=== PATIENT | female | born 1980 | race Caucasian/White ===

== ENCOUNTER 2016-11-26 10:02 | Emergency (ER) | payer BC, OTHER ==
--- NOTE | 2016-11-26 14:18 | DIAGNOSTIC IMAGING REPORT ---
PROCEDURE: US ABDOMEN ULTRASOUND-LIMITED INDICATION: RUQ PAIN TECHNIQUE: Sanchez scale and color Doppler sonographic images of the abdomen were obtained without comparison. COMPARISON: Abdominal CT 07/16/2014 FINDINGS: The liver is normal in size, contour, and echotexture. No mass or intrahepatic biliary dilatation. Two angiomas are noted, one measuring 12 mm and the other measuring 10 mm. The gallbladder is normal without stones or sludge. The wall is normal thickness measuring 2 mm No pericholecystic fluid or Lo sign. The extrahepatic common duct is normal measuring 2.5 mm The visualized pancreas is normal without ductal dilatation or peripancreatic fluid collection. The abdominal aorta is normal in its course and caliber. The retrohepatic inferior vena cava is patent. There is appropriate hepatopetal flow in the portal vein. The right kidney measures 9.2 x 5.2 x 4 cm in length. There is no perihepatic or perisplenic ascites. IMPRESSION: 1. Normal abdominal ultrasound.
--- NOTE | 2016-11-26 15:33 | ED NURSING NOTES ---
Clinical Report - Nurses [facility] [place] [address] 11/26/2016 8:55 Patient: SAMANTHA FRITZ TRIAGE 09:55 11/26/16. --09:55 Remedios Aburto R.N. Triage time 10:13. Acuity: LEVEL 3. Chief Complaint: ABDOMINAL PAIN and NAUSEA. Alert. No acute distress. --10:24 Neyda Matt R.N. 10:13 11/26/16. BP: 100/57. HR: 91. RR: 18. O2 saturation: 97%. Temp: 98.4 F. Pain level now 01/21. --10:24 Neyda Matt R.N. MATT COMA SCORE: Matt Coma Scale: 15- eyes open spontaneously (4); best verbal response- oriented x 4 (5); best motor response- obeys commands (6). --10:29 Neyda Matt R.N. Weight: 68.4 kg stated. Height/Length: 64 inches Per Patient. BMI: 25.9. --10:27 Neyda Matt R.N. Medications Vitamins Oral. --10:16 Neyda Matt R.N. Medication/allergy information source: the patient. --10:24 Neyda Matt R.N. Allergies None. --10:16 Neyda Matt R.N. History ( Pt rapid triaged in [facility] on arrival, just after being registered, pt states has RUQ abdominal pain and is 29 weeks , referred to OB to have baby checked, even though pt protested, stating that her OBMD told her it was not a labor issue.). --09:53 Remedios Aburto R.N. ( OB RN, [facility], gave report now that Dr. Farfan is seeing pt, and will send her back to ED for evaluation of abdominal pain, cleared for OB complications at this time.). --09:55 Remedios Aburto R.N. Arrived by private vehicle. Historian: patient. Unaccompanied (self). Primary physician (dorothy vigil). ( RUQ abd pain x 1 week, intermittent, feels like nerve pain, but extends sub dermally.). No nausea, vomiting, diarrhea or fever. Last oral intake by patient was (0800 water 0730 breakfast). Treatment FIRE SERVICES PLUMBER: None. PAST MEDICAL HX: Immunizations: up-to-date. Last normal menstrual period- May 02. Currently . In 3rd trimester. SURGERY HX: Laparoscopy (3x endometriosis, cone bx). ( right breast lumpectomy, left arm ortho). SOCIAL HX: Former smoker. No alcohol use. No recent travel. No infectious disease exposure. No known contact with a sick individual. ABUSE ASSESSMENT: No report of abuse. SELF HARM ASSESSMENT: A self harm assessment was performed. The patient answered "no" to the question "Are you here because you tried to hurt yourself?". FALL RISK ASSESSMENT: Fall risk assessment completed. No fall risk identified. NUTRITIONAL RISK ASSESSMENT: The nutritional risk assessment revealed no deficiencies. FUNCTIONAL ASSESSMENT: Functional assessment: no impairments noted. LEARNING NEEDS ASSESSMENT: The learning needs assessment revealed no barriers. SKIN INTEGRITY ASSESSMENT: Skin integrity risk assessment completed. No skin integrity risk identified. --10:24 Neyda Matt R.N. PROBLEMS: Trigeminal Neuralgia. --10:17 Neyda Matt R.N. Interventions ID band on patient. To treatment room. --10:24 Neyda Matt R.N. PHYSICAL ASSESSMENT HEENT: Mucous membranes are pink. GI / : Abdomen soft. Abdominal tenderness in the right upper quadrant. SKIN: Skin is warm and dry. --10:25 Neyda Matt R.N. NURSING PROGRESS NOTES Monitoring of patient in place. Patient gowned. Head of bed elevated. Reassurance given. Two patient identifiers checked. Call light placed in reach. Side rails up x 1. Bed placed in lowest position. Brakes of bed on. Patient ready for evaluation- chart flagged. ED physician notified. --10:26 Neyda Matt R.N. 10:43 11/26/2016 Site #1 started via IV in the left with an 20g angiocath, with aseptic technique and good blood return; one attempt. Blood drawn: rainbow set. Labeled in the presence of the patient and sent to the lab. Saline lock flushed with 5 mL saline. --10:54 Neyda Matt R.N. 10:20. Care transferred and report received. --11:03 Neyda Matt R.N. 10:59 11/26/2016 Acetaminophen (APAP) PO 1000 mg given. Allergies verified and confirmed 5 rights. --11:25 Neyda Matt R.N. 12:38 11/26/2016 Demerol (Meperidine HCl) IVP 12.5 mg given. via site #1. Allergies verified and confirmed 5 rights. IV patency established. IV site checked: no pain, redness, or swelling. IV flushed thoroughly pre- and post-medication administration. IVP given by RN. --12:38 Neyda Matt R.N. 14:40 11/26/2016 Demerol (Meperidine HCl) IVP 12.5 mg given. via site #1. Allergies verified and confirmed 5 rights. IV patency established. IV site checked: no pain, redness, or swelling. IV flushed thoroughly pre- and post-medication administration. IVP given by RN. --14:40 Neyda Matt R.N. The patient reports abdominal pain located in the RUQ is still present and currently described as sharp and burning. --14:43 Neyda Matt R.N. DISPOSITION / DISCHARGE 15:50 11/26/2016 Site #1 removed upon discharge. Catheter intact. Pressure dressing applied. --15:55 Neyda Matt R.N. Departure time: 1554. Condition at departure: improved. ( decreased pain level). No learning barriers present. Discharge instructions provided and reviewed with the patient. Reviewed medication(s) dosing and course information. Prescription(s) given to the patient. Medication(s) for home use given to the patient per protocol. Work note given. Patient verbalized understanding. Written instructions provided in Luxembourgish. The patient was discharged home and accompanied by human services professional. She left the Emergency Department ambulatory and via private vehicle. Keg Raiser driving. FALL RISK ASSESSMENT: Fall risk assessment completed. No fall risk identified. --15:57 Neyda Matt R.N. 15:54 11/26/16. BP: 111/67. HR: 77. RR: 18. O2 saturation: 100%. Temp: 98.5 F. Pain level now 09/21. --15:57 Neyda Matt R.N. Locked/Released at 11/26/2016 19:02 by Neyda Matt R.N.
--- NOTE | 2016-11-26 15:33 | ED ORDER SUMMARY ---
..... Patient: SAMANTHA FRITZ OrderSheet [facility] VisitID: [id number] [place] [address] 36y, F Registration Date/Time: 11/26/2016 ORDER SHEET Weight: 68.4 kg (stated) Allergies: None GENERAL ORDERS: CBC w Diff Urgent (10:11/26/2016 Stevie Multani) (Ack 10:19 TBergley) (10:54 LAbe R.N.) CMP Urgent (10:11/26/2016 Stevie Multani) (Ack 10:19 TBergley) (10:54 LAbe R.N.) UA-Culture if indicated Urgent (10:11/26/2016 Stevie Multani) (Ack 10:19 TBergley) (10:54 LAbe R.N.) Amylase Urgent (10:11/26/2016 Stevie Multani) (Ack 10:19 TBergley) (10:54 LAbe R.N.) Lipase Urgent (10:11/26/2016 Stevie Multani) (Ack 10:19 TBergley) (10:54 LAbe R.N.) US Abdomen Limited (Yes) Urgent (12:11/26/2016 Stevie Multani) (Ack 12:30 TBergley) (14:17 Eduin) MEDICATION ORDERS: Acetaminophen PO 1,000 mg (NOW) (10:49 11/26/2016 Stevie Multani) (Ack 10:54 LAbe R.N.) (11:25 LAbe R.N.) IV FLUIDS: IV Saline Lock (10:11/26/2016 Stevie Multani) (10:54 LAbe R.N.) Demerol IV 12.5 mg (HIGH ALERT MEDICATION, NOW) (12:29 11/26/2016 Steive Multani) (Ack 12:33 LAbe R.N.) (12:38 LAbe R.N.) Demerol IV 12.5 mg (HIGH ALERT MEDICATION, NOW) (14:31 11/26/2016 Stevie Multani) (Ack 14:39 LAbe R.N.) (14:40 Sergio Henriquez) ORDER SHEET NOTES: [Electronically signed by Neyda Matt R.N. (19:02 11/26/2016)] [Electronically signed by Evan Robison Dr. (08:42 11/27/2016)] [Electronically locked/signed by Neyda Matt R.N. (19:02 11/26/2016)]
--- NOTE | 2016-11-26 15:33 | ED CLINICAL REPORT ---
Clinical Report - Physicians/Mid Levels [facility] [address] [place] [place] [address] 11/26/2016 8:55 Patient: SAMANTHA FRITZ Time Seen: 10:17 Pt just presenting to ED, was evaluated by Ob initially; initial patient contact. HISTORY OF PRESENT ILLNESS Chief Complaint: ABDOMINAL PAIN. It is described as "pain" and burning. No radiation. It is described as located in the right upper quadrant. At its maximum, severity described as moderate. When seen in the E.D., severity described as moderate. Modifying factors- worsened by cough and deep breaths. Not relieved by anything. This started about 1 week ago and is still present. It was gradual in onset. No nausea, loss of appetite, vomiting or diarrhea. Similar symptoms previously: None. Recent medical care: The patient was seen recently at this facility (Cleared by Ob). REVIEW OF SYSTEMS No constipation, difficulty with urination, pain with urination, abnormal bleeding or fever. No chills. All systems otherwise negative, except as recorded above. PAST HISTORY Trigeminal Neuralgia. Medications: Vitamins Oral. Allergies: None. SOCIAL HISTORY Former smoker. No alcohol use or drug use. ADDITIONAL NOTES The nursing notes have been reviewed. PHYSICAL EXAM Vital Signs: 11/26/2016 10:13 BP: 100/57. HR: 91. RR: 18. O2 saturation: 97%. Temp: 98.4 F. Have been reviewed. Hypotensive. Heart rate normal. Respiratory rate normal. Temperature normal. Oxygen saturation normal. Appearance: Alert. Oriented X3. Appears to be in pain. ENT: Pharynx normal. CVS: Normal heart rate and rhythm. Heart sounds normal. Respiratory: No respiratory distress. Breath sounds normal. Abdomen: Soft. Moderate tenderness in the right upper quadrant with guarding present (Superficial tenderness.). No rebound tenderness or Lo's sign present. Bowel sounds normal. No organomegaly. No mass. Back: Normal inspection. No tenderness. No rash. Painless ROM. Skin: Normal skin color. No rash. Neuro: Oriented X 3. LABS, X-RAYS, AND EKG Laboratory Tests: UA-Culture if indicated: (ZAINA: 11/26/2016 10:48) ( [facility] 11/26/2016 11:10) Final results Test Result Flag Units (Reference) URINE COLOR YELLOW URINE APPEARANCE CLEAR URINE GLUCOSE NEGATIVE (NEGATIVE) URINE BILIRUBIN NEGATIVE (NEGATIVE) URINE KETONE NEGATIVE (NEGATIVE) URINE SPECIFIC GRAVITY 1.010 (1.010-1.030) URINE PH 7.0 (5.0-8.0) URINE PROTEIN NEGATIVE (NEGATIVE) URINE UROBILINOGEN 0.2 EU/dL (0.2-1.0) URINE NITRITE NEGATIVE (NEGATIVE) URINE BLOOD NEGATIVE (NEGATIVE) URINE LEUK ESTERASE NEGATIVE (NEGATIVE) URINE RBC NONE SEEN rbc/hpf (0-1) URINE WBC RARE wbc/hpf (0-1) URINE EPITHELIAL CELLS 1-3 EPI/hpf (0-5) URINE BACTERIA FEW (1+) (NONE SEEN) URINE COMMENT CULT NOT INDICATED URINE CULTURES ARE SET-UP BASED ON THE FOLLOWING CRITERIA:POSITIVE NITRITEPOSITIVE LEUKOCYTE ESTERASEGREATER THAN 10 WHITE BLOOD CELLSMODERATE (2+) OR GREATER BACTERIA CBC w Diff: (ZAINA: 11/26/2016 10:40) ( [facility] 11/26/2016 11:06) Final results Test Result Flag Units (Reference) WHITE BLOOD COUNT 15.8 H K/uL (4.5-11.5) RED BLOOD COUNT 3.36 L M/uL (4.00-5.20) HEMOGLOBIN 11.2 L gm/dL (12.0-16.0) HEMATOCRIT 33.0 L % (36.0-46.0) MEAN CELL VOLUME 98 fL (80-100) MEAN CORPUSCULAR HGB 33 pg (26-34) MEAN CORPUSCULAR HGB CONC 34 g/dL (31-37) RED CELL DISTRIBUTION WIDTH 13.6 % (11.6-14.8) PLATELET COUNT 159 K/uL (150-400) NEUTROPHIL % 88.9 H % (50-75) LYMPH % 5.2 L % (25-40) MONO % 5.5 % (3-14) EOSINOPHIL % 0.3 % (0-4) BASOPHIL % 0.1 % (0-2) CMP: (ZAINA: 11/26/2016 10:40) ( MsgRcvd 11/26/2016 11:17) Final results Test Result Flag Units (Reference) GLUCOSE 112 H mg/dL (70-110) BUN 9 mg/dL (7-18) CREATININE 0.4 L mg/dL (0.6-1.3) Estimated GFR >60 mL/min Estimated GFR- >60 mL/min Note: Persistent reduction over 3 months in eGFR<60 mL/min/1.73 m2 defines CKD. Patients with eGFR values>=60 mL/min/1.73 m2 may also have CKD if evidence ofpersistent proteinuria. Additional information may be foundat www.kidney.org. SODIUM 141 mmol/L (136-145) POTASSIUM 3.7 mmol/L (3.5-5.1) CHLORIDE 107 mmol/L (98-107) CARBON DIOXIDE 26 mmol/L (21-32) CALCIUM 8.6 mg/dL (8.5-10.1) TOTAL PROTEIN 5.9 L g/dL (6.4-8.2) ALBUMIN 2.7 L g/dL (3.3-5.0) BILIRUBIN, TOTAL 0.2 mg/dL (0.0-1.0) ALKALINE PHOSPHATASE 66 U/L (46-116) AST (SGOT) 20 U/L (15-37) ALT (SGPT) 35 U/L (12-78) LIPASE 103 U/L (73-393) AMYLASE 43 U/L (25-115) . PROGRESS AND PROCEDURES Disposition: Discharged home in good and improved condition. Condition: good. CLINICAL IMPRESSION Abdominal muscle strain INSTRUCTIONS Do not work today. Your Current Medications: CONTINUE TAKING THE FOLLOWING MEDICATIONS: Vitamins Oral. Prescription Medications: Hydrocodone/APAP 5mg / 325mg: take 1 orally every 6 hours as needed for pain. Dispense fifteen (15). No refill. Lidoderm 5% topical patch Apply to affected area for 12 hours May cut to size Disp # 30 No refills Substitution OK. Follow-up: Follow up with your doctor Wednesday as scheduled. Blood pressure screening was not performed during this visit because the patient has an active diagnosis of hypertension. (Electronically signed by Evan Robison Dr. 11/27/2016 8:42)
--- NOTE | 2016-11-26 15:33 | ED ORDER SUMMARY ---
..... Patient: SAMANTHA FRITZ OrderSheet [facility] VisitID: [id number] [place] [address] 36y, F Registration Date/Time: 11/26/2016 ORDER SHEET Weight: 68.4 kg (stated) Allergies: None GENERAL ORDERS: CBC w Diff Urgent (10:11/26/2016 Stevie Multani) (Ack 10:19 TBergley) (10:54 LAbe R.N.) CMP Urgent (10:11/26/2016 Stevie Multani) (Ack 10:19 TBergley) (10:54 LAbe R.N.) UA-Culture if indicated Urgent (10:11/26/2016 Stevie Multani) (Ack 10:19 TBergley) (10:54 LAbe R.N.) Amylase Urgent (10:11/26/2016 Stevie Multani) (Ack 10:19 TBergley) (10:54 LAbe R.N.) Lipase Urgent (10:11/26/2016 Stevie Multani) (Ack 10:19 TBergley) (10:54 LAbe R.N.) US Abdomen Limited (Yes) Urgent (12:11/26/2016 Stevie Multani) (Ack 12:30 TBergley) (14:17 Eduin) MEDICATION ORDERS: Acetaminophen PO 1,000 mg (NOW) (10:49 11/26/2016 Stevie Multani) (Ack 10:54 LAbe R.N.) (11:25 LAbe R.N.) IV FLUIDS: IV Saline Lock (10:11/26/2016 Stevie Multani) (10:54 LAbe R.N.) Demerol IV 12.5 mg (HIGH ALERT MEDICATION, NOW) (12:29 11/26/2016 Stevie Multani) (Ack 12:33 LAbe R.N.) (12:38 LAbe R.N.) Demerol IV 12.5 mg (HIGH ALERT MEDICATION, NOW) (14:31 11/26/2016 Stevie Multani) (Ack 14:39 LAbe R.N.) (14:40 Sergio Henriquez) ORDER SHEET NOTES: [Electronically signed by Neyda Matt R.N. (19:02 11/26/2016)] [Electronically signed by Evan Robison Dr. (08:42 11/27/2016)] [Electronically locked/signed by Neyda Matt R.N. (19:02 11/26/2016)]
--- NOTE | 2016-11-26 15:33 | ED NURSING NOTES ---
Clinical Report - Nurses [facility] [place] [address] 11/26/2016 8:55 Patient: SAMANTHA FRITZ TRIAGE 09:55 11/26/16. --09:55 Remedios Aburto R.N. Triage time 10:13. Acuity: LEVEL 3. Chief Complaint: ABDOMINAL PAIN and NAUSEA. Alert. No acute distress. --10:24 Neyda Matt R.N. 10:13 11/26/16. BP: 100/57. HR: 91. RR: 18. O2 saturation: 97%. Temp: 98.4 F. Pain level now 01/21. --10:24 Neyda Matt R.N. MATT COMA SCORE: Matt Coma Scale: 15- eyes open spontaneously (4); best verbal response- oriented x 4 (5); best motor response- obeys commands (6). --10:29 Neyda Matt R.N. Weight: 68.4 kg stated. Height/Length: 64 inches Per Patient. BMI: 25.9. --10:27 Neyda Matt R.N. Medications Vitamins Oral. --10:16 Neyda Matt R.N. Medication/allergy information source: the patient. --10:24 Neyda Matt R.N. Allergies None. --10:16 Neyda Mtat R.N. History ( Pt rapid triaged in [facility] on arrival, just after being registered, pt states has RUQ abdominal pain and is 29 weeks , referred to OB to have baby checked, even though pt protested, stating that her OBMD told her it was not a labor issue.). --09:53 Remedios Aburto R.N. ( OB RN, [facility], gave report now that Dr. Farfan is seeing pt, and will send her back to ED for evaluation of abdominal pain, cleared for OB complications at this time.). --09:55 Remedios Aburto R.N. Arrived by private vehicle. Historian: patient. Unaccompanied (self). Primary physician (dorothy vigil). ( RUQ abd pain x 1 week, intermittent, feels like nerve pain, but extends sub dermally.). No nausea, vomiting, diarrhea or fever. Last oral intake by patient was (0800 water 0730 breakfast). Treatment POMOLOGIST: None. PAST MEDICAL HX: Immunizations: up-to-date. Last normal menstrual period- May 02. Currently . In 3rd trimester. SURGERY HX: Laparoscopy (3x endometriosis, cone bx). ( right breast lumpectomy, left arm ortho). SOCIAL HX: Former smoker. No alcohol use. No recent travel. No infectious disease exposure. No known contact with a sick individual. ABUSE ASSESSMENT: No report of abuse. SELF HARM ASSESSMENT: A self harm assessment was performed. The patient answered "no" to the question "Are you here because you tried to hurt yourself?". FALL RISK ASSESSMENT: Fall risk assessment completed. No fall risk identified. NUTRITIONAL RISK ASSESSMENT: The nutritional risk assessment revealed no deficiencies. FUNCTIONAL ASSESSMENT: Functional assessment: no impairments noted. LEARNING NEEDS ASSESSMENT: The learning needs assessment revealed no barriers. SKIN INTEGRITY ASSESSMENT: Skin integrity risk assessment completed. No skin integrity risk identified. --10:24 Neyda Matt R.N. PROBLEMS: Trigeminal Neuralgia. --10:17 Neyda Matt R.N. Interventions ID band on patient. To treatment room. --10:24 Neyda Matt R.N. PHYSICAL ASSESSMENT HEENT: Mucous membranes are pink. GI / : Abdomen soft. Abdominal tenderness in the right upper quadrant. SKIN: Skin is warm and dry. --10:25 Neyda Matt R.N. NURSING PROGRESS NOTES Monitoring of patient in place. Patient gowned. Head of bed elevated. Reassurance given. Two patient identifiers checked. Call light placed in reach. Side rails up x 1. Bed placed in lowest position. Brakes of bed on. Patient ready for evaluation- chart flagged. ED physician notified. --10:26 Neyda Matt R.N. 10:43 11/26/2016 Site #1 started via IV in the left with an 20g angiocath, with aseptic technique and good blood return; one attempt. Blood drawn: rainbow set. Labeled in the presence of the patient and sent to the lab. Saline lock flushed with 5 mL saline. --10:54 Neyda Matt R.N. 10:20. Care transferred and report received. --11:03 Neyda Matt R.N. 10:59 11/26/2016 Acetaminophen (APAP) PO 1000 mg given. Allergies verified and confirmed 5 rights. --11:25 Neyda Matt R.N. 12:38 11/26/2016 Demerol (Meperidine HCl) IVP 12.5 mg given. via site #1. Allergies verified and confirmed 5 rights. IV patency established. IV site checked: no pain, redness, or swelling. IV flushed thoroughly pre- and post-medication administration. IVP given by RN. --12:38 Neyda Matt R.N. 14:40 11/26/2016 Demerol (Meperidine HCl) IVP 12.5 mg given. via site #1. Allergies verified and confirmed 5 rights. IV patency established. IV site checked: no pain, redness, or swelling. IV flushed thoroughly pre- and post-medication administration. IVP given by RN. --14:40 Neyda Matt R.N. The patient reports abdominal pain located in the RUQ is still present and currently described as sharp and burning. --14:43 Neyda Matt R.N. DISPOSITION / DISCHARGE 15:50 11/26/2016 Site #1 removed upon discharge. Catheter intact. Pressure dressing applied. --15:55 Neyda Matt R.N. Departure time: 1554. Condition at departure: improved. ( decreased pain level). No learning barriers present. Discharge instructions provided and reviewed with the patient. Reviewed medication(s) dosing and course information. Prescription(s) given to the patient. Medication(s) for home use given to the patient per protocol. Work note given. Patient verbalized understanding. Written instructions provided in Lao. The patient was discharged home and accompanied by senior product analyst. She left the Emergency Department ambulatory and via private vehicle. Solar Engineer driving. FALL RISK ASSESSMENT: Fall risk assessment completed. No fall risk identified. --15:57 Neyda Matt R.N. 15:54 11/26/16. BP: 111/67. HR: 77. RR: 18. O2 saturation: 100%. Temp: 98.5 F. Pain level now 09/21. --15:57 Neyda Matt R.N. Locked/Released at 11/26/2016 19:02 by Neyda Matt R.N.
--- NOTE | 2016-11-27 08:42 | ED DISCHARGE INSTRUCTIONS ---
Patient: SAMANTHA FRITZ General Instructions [facility] VisitID: [id number] [place] [address] 36y, F Registration Date/Time: 11/26/2016 Abdominal muscle strain INSTRUCTIONS Do not work today. Your Current Medications: CONTINUE TAKING THE FOLLOWING MEDICATIONS: Vitamins Oral. Prescription Medications: Hydrocodone/APAP 5mg / 325mg: take 1 orally every 6 hours as needed for pain. Dispense fifteen (15). No refill. Lidoderm 5% topical patch Apply to affected area for 12 hours May cut to size Disp # 30 No refills Substitution OK. Follow-up: Follow up with your doctor Wednesday as scheduled. Blood pressure screening was not performed during this visit because the patient has an active diagnosis of hypertension. ADDITIONAL INFORMATION Muscle Strain, Abdomen A muscle strain is a stretching and tearing of muscle fibers. The abdomen is protected by a thick wall of muscle in the front and sides. These muscles help with twisting and bending forward. Repeated coughing, lifting heavy objects or sudden jerking movements can sometimes cause a muscle strain in the abdomen. This causes pain that is worse when you move. The area may also feel tender or be swollen and bruised. Home Care: Make an ice pack (ice cubes in a plastic bag, wrapped in a towel) and apply over the injured area for 20 minutes every 1-2 hours the first day. You should continue with ice packs 3-4 times a day for the next two days. Continue the use of ice packs for relief of pain and swelling as needed. You may use acetaminophen (Tylenol) or ibuprofen (Motrin, Advil) to control pain, unless another pain medicine was prescribed. [NOTE: If you have liver or kidney disease, a stomach ulcer or GI bleeding, talk with your doctor before using these medicines.] Follow Up with your doctor or this facility if you are not improving within the next five days. Get Prompt Medical Attention if any of the following occur: Pain increases or moves to the right lower abdomen (just below the waistline) Fever of 100.4 F (38 C) or higher, or as directed by your healthcare provider Vomiting Severe abdominal pain that spreads to the back or toward the groin Dizziness, weakness or fainting Blood in the urine Unexpected vaginal bleeding (for women) Hydrocodone Bitartrate, Acetaminophen Oral tablet What is this medicine? ACETAMINOPHEN; HYDROCODONE (a set a LAYA gomez fen; john droe KOE done) is a pain reliever. It is used to treat mild to moderate pain. How should I use this medicine? Take this medicine by mouth. Swallow it with a full glass of water. Follow the directions on the prescription label. If the medicine upsets your stomach, take the medicine with food or milk. Do not take more than you are told to take. Talk to your sales representative uniforms regarding the use of this medicine in children. This medicine is not approved for use in children. What side effects may I notice from receiving this medicine? Side effects that you should report to your doctor or health healthcare science specialist as soon as possible: allergic reactions like skin rash, itching or hives, swelling of the face, lips, or tongue breathing problems confusion feeling faint or lightheaded, falls stomach pain yellowing of the eyes or skin Side effects that usually do not require medical attention (report to your doctor or health healthcare science specialist if they continue or are bothersome): nausea, vomiting stomach upset What may interact with this medicine? alcohol antihistamines isoniazid medicines for depression, anxiety, or psychotic disturbances medicines for sleep muscle relaxants naltrexone narcotic medicines (opiates) for pain phenobarbital ritonavir tramadol What if I miss a dose? If you miss a dose, take it as soon as you can. If it is almost time for your next dose, take only that dose. Do not take double or extra doses. Where should I keep my medicine? Keep out of the reach of children. This medicine can be abused. Keep your medicine in a safe place to protect it from theft. Do not share this medicine with anyone. Selling or giving away this medicine is dangerous and against the law. Store at room temperature between 15 and 30 degrees C (59 and 86 degrees F). Protect from light. Keep container tightly closed. Throw away any unused medicine after the expiration date. Discard unused medicine and used packaging carefully. Pets and children can be harmed if they find used or lost packages. What should I tell my health care provider before I take this medicine? They need to know if you have any of these conditions: brain tumor Crohn's disease, inflammatory bowel disease, or ulcerative colitis drink more than 3 alcohol-containing drinks per day drug abuse or addiction head injury heart or circulation problems kidney disease or problems going to the bathroom liver disease lung disease, asthma, or breathing problems an unusual or allergic reaction to acetaminophen, hydrocodone, other opioid analgesics, other medicines, foods, dyes, or preservatives or trying to get breast-feeding What should I watch for while using this medicine? Tell your doctor or health healthcare science specialist if your pain does not go away, if it gets worse, or if you have new or a different type of pain. You may develop tolerance to the medicine. Tolerance means that you will need a higher dose of the medicine for pain relief. Tolerance is normal and is expected if you take the medicine for a long time. Do not suddenly stop taking your medicine because you may develop a severe reaction. Your body becomes used to the medicine. This does NOT mean you are addicted. Addiction is a behavior related to getting and using a drug for a non-medical reason. If you have pain, you have a medical reason to take pain medicine. Your doctor will tell you how much medicine to take. If your doctor wants you to stop the medicine, the dose will be slowly lowered over time to avoid any side effects. You may get drowsy or dizzy when you first start taking the medicine or change doses. Do not drive, use machinery, or do anything that may be dangerous until you know how the medicine affects you. Stand or sit up slowly. There are different types of narcotic medicines (opiates) for pain. If you take more than one type at the same time, you may have more side effects. Give your health care provider a list of all medicines you use. Your doctor will tell you how much medicine to take. Do not take more medicine than directed. Call emergency for help if you have problems breathing. The medicine will cause constipation. Try to have a bowel movement at least every 2 to 3 days. If you do not have a bowel movement for 3 days, call your doctor or health healthcare science specialist. Too much acetaminophen can be very dangerous. Do not take Tylenol (acetaminophen) or medicines that contain acetaminophen with this medicine. Many non-prescription medicines contain acetaminophen. Always read the labels carefully. You have been given the following additional information: Muscle Strain, Abdomen Hydrocodone Bitartrate, Acetaminophen Oral tablet Do not work today. (Electronically signed by Evan Robison Dr. 11/27/2016 8:42)
--- NOTE | 2016-11-27 08:43 | ED MED RECONCILIATION SUMMARY ---
Patient: SAMANTHA FRITZ Medication Reconciliation Report [facility] VisitID: [id number] [place] [address] 36y, F Registration Date/Time: 11/26/2016 Weight: 68.4 kg Height/Length: 64 in. BMI: 25.9 ALLERGIES: None The patient's Home Medications are listed below: CONTINUE TAKING THE FOLLOWING MEDICATIONS: Vitamins Oral The source(s) of the original Home Medication information: patient The following Medications were given to the patient in the Emergency Department: Acetaminophen [PO] PO 1000 mg, administered: 11/26/2016 10:59:00 AM Demerol [IVP] IVP 12.5 mg, administered: 11/26/2016 12:38:00 PM Demerol [IVP] IVP 12.5 mg, administered: 11/26/2016 2:40:00 PM The following Medications were prescribed to the patient: Lidoderm 5% topical patchApply to affected area for 12 hoursMay cut to sizeDisp # 30No refillsSubstitution OK. -- Evan Robison Dr. Hydrocodone/APAP 5mg / 325mg: take 1 orally every 6 hours as needed for pain. Dispense fifteen (15). No refill. -- Evan Robison Dr.
--- NOTE | 2016-11-27 08:43 | ED MAR SUMMARY ---
..... Medication Administration Record [facility] [address] [place] [address] Patient: SAMANTHA FRITZ Visit ID: [id number] 36y, F Weight: 68.4 kg Height/Length: 64 in BMI: 25.9 ALLERGIES: None Given 10:59 11/26/2016 Neyda Matt R.N. Medication Administered: ACETAMINOPHEN [PO] (APAP), Dose: 1000 mg PO. Medication Ordered: Acetaminophen PO 1,000 mg (NOW). Given 12:38 11/26/2016 Neyda Matt R.N. Medication Administered: DEMEROL [IVP] (MEPERIDINE HCL), Dose: 12.5 mg IVP, Site: #1 left. Medication Ordered: Demerol IV 12.5 mg (HIGH ALERT MEDICATION, NOW). Given 14:40 11/26/2016 Neyda Matt R.N. Medication Administered: DEMEROL [IVP] (MEPERIDINE HCL), Dose: 12.5 mg IVP, Site: #1 left. Medication Ordered: Demerol IV 12.5 mg (HIGH ALERT MEDICATION, NOW).
--- NOTE | 2016-11-27 08:43 | ED MED RECONCILIATION SUMMARY ---
Patient: SAMANTHA FRITZ Medication Reconciliation Report [facility] VisitID: [id number] [place] [address] 36y, F Registration Date/Time: 11/26/2016 Weight: 68.4 kg Height/Length: 64 in. BMI: 25.9 ALLERGIES: None The patient's Home Medications are listed below: CONTINUE TAKING THE FOLLOWING MEDICATIONS: Vitamins Oral The source(s) of the original Home Medication information: patient The following Medications were given to the patient in the Emergency Department: Acetaminophen [PO] PO 1000 mg, administered: 11/26/2016 10:59:00 AM Demerol [IVP] IVP 12.5 mg, administered: 11/26/2016 12:38:00 PM Demerol [IVP] IVP 12.5 mg, administered: 11/26/2016 2:40:00 PM The following Medications were prescribed to the patient: Lidoderm 5% topical patchApply to affected area for 12 hoursMay cut to sizeDisp # 30No refillsSubstitution OK. -- Evan Robison Dr. Hydrocodone/APAP 5mg / 325mg: take 1 orally every 6 hours as needed for pain. Dispense fifteen (15). No refill. -- Evan Robison Dr.
--- NOTE | 2016-11-27 08:43 | ED MAR SUMMARY ---
..... Medication Administration Record [facility] [address] [place] [address] Patient: SAMANTHA FRITZ Visit ID: [id number] 36y, F Weight: 68.4 kg Height/Length: 64 in BMI: 25.9 ALLERGIES: None Given 10:59 11/26/2016 Neyda Matt R.N. Medication Administered: ACETAMINOPHEN [PO] (APAP), Dose: 1000 mg PO. Medication Ordered: Acetaminophen PO 1,000 mg (NOW). Given 12:38 11/26/2016 Neyda Matt R.N. Medication Administered: DEMEROL [IVP] (MEPERIDINE HCL), Dose: 12.5 mg IVP, Site: #1 left. Medication Ordered: Demerol IV 12.5 mg (HIGH ALERT MEDICATION, NOW). Given 14:40 11/26/2016 Neyda Matt R.N. Medication Administered: DEMEROL [IVP] (MEPERIDINE HCL), Dose: 12.5 mg IVP, Site: #1 left. Medication Ordered: Demerol IV 12.5 mg (HIGH ALERT MEDICATION, NOW).
== END 2016-11-26 15:54 | disposition home or self-care (01) ==
LOC: EDSTATUS 10:02 → ED SRH 10:03
DX: O9A.213 Injury, poisoning and certain other consequences of external causes complicating pregnancy, third trimester (principal); S39.011A Strain of muscle, fascia and tendon of abdomen, initial encounter; R10.11 Right upper quadrant pain; X58.XXXA Exposure to other specified factors, initial encounter; Y93.9 Activity, unspecified; Y99.9 Unspecified external cause status; Y92.9 Unspecified place or not applicable; Z3A.29 29 weeks gestation of pregnancy
CPT/HCPCS: 90004; 90100; 92235; 92530; 95059